=== PATIENT | female | born 1985 | race Hispanic/Latino ===

== ENCOUNTER 2024-01-27 12:37 | Emergency (ER) | payer OTHER, SELFPAY ==
--- OUTSIDE RECORDS SUMMARY | 2024-01-27 12:40 | XMS REPORT | Continuity of Care Document ---
Author Name Unknown Address [address] [facility] [address] [place] [address] [facility] Address [address] [facility] 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 Role Phone Ron Boggs Attending Clinician Unavailab Ron Ballard Admitting Clinician Unavailab moore Allergies, Adverse Reactions, Alerts Allergy Name Allergy Type Status Severity Reaction(s) Onset Date Inactive Date Treating Clinician Comments Source No Known Allergie s DA Active U 01-22 00:00: 00 [facility] Encounters Start Date/Time End Date/Time Encounter Type Admission Type Attending Clinicians Care Facility Care Department Encounter ID Source 2023-01-17 16:39:00 2023-01-17 16:39:00 Outpatient Ron Boggs [facility] [id number] [facility]
[2024-01-27 13:19] LABS: Absolute Eosinophils 0.1 K/uL (0-0.5); Absolute Lymphocytes (CBC) 2.8 K/uL (0.7-4.9); Absolute Monocytes 0.3 K/uL (0.1-1.3); Absolute Neutrophil 2.6 K/uL (1.8-8.0); Basophils % 0.3 % (0-1.3); Eosinophils % 2.2 % (0-4.4); Hematocrit 34.6 % (36.0-45.0); Hemoglobin 10.7 g/dL (12.0-15.0); Lymphocytes % 47.5 % (15.3-44.8); MCH 21.3 pg (27.0-35.0); MCHC 30.9 g/dL (32.0-36.0); MPV 8.7 fL (7.6-11.3); Monocytes % 5.8 % (3.3-12.3); Neutrophils % 44.2 % (41.7-73.7); Platelets 381 thou/uL (152-406); RBC Red Blood Cell Count 5.02 M/uL (3.86-4.86); Red Cell Distribution Width 19.3 % (12.1-15.2)
[2024-01-27 13:35] LABS: ALT/SGPT 20 U/L (13-56); Albumin 3.7 g/dL (3.4-5.0); Alkaline Phosphatase 70 U/L (45-117); Anion Gap 6.6 mEq/L (5.0-15.0); BUN Blood Urea Nitrogen 11 mg/dL (7-18); Bicarbonate 29 mEq/L (21-32); Bilirubin Total 0.3 mg/dL (0.2-1.0); Globulin 3.8 g/dL (2.3-3.5); Glomerular Filtration Rate 112 ml/min (=/>90); Glucose Level 111 mg/dL (74-106); Lipase 40 U/L (13-75); Potassium 3.6 mEq/L (3.5-5.1); Protein, Total 7.5 g/dL (6.4-8.2); Sodium Level 136 mEq/L (136-145)
[2024-01-27 13:41] LABS: AST/SGOT < 10 U/L (15-37)
[2024-01-27 13:49] LABS: Specific Gravity 1.015 (1.005-1.030)
[2024-01-27 13:50] LABS: Specific Gravity 1.015 (1.005-1.030); Sqamous Epithelial <5 /HPF (None Seen); Urine Bacteria None Seen /HPF (<20); Urine Bilirubin NEGATIVE (Negative); Urine Blood Negative (Negative); Urine Clarity Turbid (Clear); Urine Color Colorless (Yellow); Urine Culture Reflex Order NOT NEEDED; Urine Glucose NEGATIVE (Negative); Urine Ketones NEGATIVE (Negative); Urine Microscopic Reflex YN ORDER UMIC; Urine Nitrite NEGATIVE (Negative); Urine Protein NEGATIVE (Negative); Urine RBC <5 /HPF (None Seen); Urine Urobilinogen Normal (Normal); Urine WBC <5 /HPF (<5)
--- NOTE | 2024-01-27 14:31 | RAD REPORT ---
EXAM DESCRIPTION: CT - Abdomen Pelvis W Contrast - 01/27/2024 1:59 pm CLINICAL HISTORY: Abdominal pain COMPARISON: none. TECHNIQUE: Computed axial tomography of the abdomen pelvis was obtained. 100 cc Isovue-300 was admin istered intravenously. Oral contrast was not requested which limits evaluation of bowel and appendix All CT scans are performed using dose optimization technique as appropriate and may include automated exposure control or mA/KV adjustment according to patient size. FINDINGS: The liver, spleen, pancreas, adrenal and kidneys appear unremarkable. There is no evidence of diverticulitis. Normal appendix. 3.2 centimeter right ovarian cystic mass contains a septation. No significant free fluid. Small cysts within cervix. Retroverted uterus IMPRESSION: 3.2 centimeter right ovarian cystic mass contains a septation. No significant free fluid . It likely is benign. Followup ultrasound a couple months is recommended for re-evaluation. Small cysts within cervix likely benign. This also can reassessed on follow-up ultrasound
--- NOTE | 2024-01-27 16:20 | RAD REPORT ---
EXAM DESCRIPTION: US - Transvaginal Study Probe - 01/27/2024 4:07 pm CLINICAL HISTORY: Pelvic pain COMPARISON: CT abdomen January 27, 2024 FINDINGS: The uterus measures 8 x 4 x 5 cm. A fibroid is not seen. The endometrial stripe measures 8 millimeters Several cysts in the cervix probably nabothian cysts The right ovary is enlarged containing blood flow. 3.2 centimeters cyst is present. This is benign. N o further follow up imaging recommended. Left ovary normal size and echotexture prominent follicles The right and left adnexa unremarkable No significant free fluid is seen. IMPRESSION: 3.2 centimeter right ovarian cyst is benign. No significant free fluid
--- NOTE | 2024-01-27 16:44 | ER ---
Nurse's Notes [facility] Name: Tiana Moreira Age: 38 yrs Sex: Female : 1985 Arrival Date: 01/27/2024 Time: 12:37 Bed 18 Private MD: Diagnosis: Other ovarian cysts Presentation: 01/26 12:43 Chief complaint: Patient states: BLQ ABD PAIN SINCE THIS MORNING, DENIES N/V/D. bp Coronavirus screen: At this time, the client does not indicate any symptoms associated with coronavirus-19. Ebola Screen: No symptoms or risks identified at this time. Initial Sepsis Screen: Does the patient meet any 2 criteria? No. Patient's initial sepsis screen is negative. Does the patient have a suspected source of infection? No. Patient's initial sepsis screen is negative. Risk Assessment: Do you want to hurt yourself or someone else? Patient reports no desire to harm self or others. Onset of symptoms was January 27, 2024. 12:43 Method Of Arrival: Ambulatory bp 12:43 Acuity: OLI 3 bp Triage Assessment: 12:44 General: Appears in no apparent distress. Behavior is calm, cooperative, appropriate bp for age. Pain: Complains of pain in abdomen. GI: Reports lower abdominal pain. 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 - Infectious Disease History:: Denies. - Social history:: Smoking status: Patient denies any tobacco usage or history of. - Family history:: not pertinent. Screenin:45 [facility] ED Fall Risk Assessment (Adult) History of falling in the last 3 months, bp including since admission No falls in past 3 months (0 pts). Abuse screen: Denies threats or abuse. Denies injuries from another. Nutritional screening: No deficits noted. Tuberculosis screening: No symptoms or risk factors identified. Assessment: 12:41 General: Appears in no apparent distress. uncomfortable, Behavior is calm, cooperative. rs5 Pain: Complains of pain in abdomen Pain currently is 4 out of 10 on a pain scale. Quality of pain is described as aching, Is continuous. Neuro: Level of Consciousness is awake, alert, obeys commands, Oriented to person, place, time, situation. Cardiovascular: Patient's skin is warm and dry. Rhythm is regular. Respiratory: Airway is patent Respiratory effort is even, unlabored, Respiratory pattern is regular, symmetrical. GI: Abdomen is round Bowel sounds present X 4 quads. Abd is soft and non tender X 4 quads. : No signs and/or symptoms were reported regarding the genitourinary system. EENT: No signs and/or symptoms were reported regarding the EENT system. Derm: Skin is intact, Skin is pink, warm \T\ dry. Musculoskeletal: Range of motion: intact in all extremities. 13:43 Reassessment: Patient and/or family updated on plan of care and expected duration. Pain rs5 level reassessed. Patient is alert, oriented x 3, equal unlabored respirations, skin warm/dry/pink. 14:30 Reassessment: Patient and/or family updated on plan of care and expected duration. Pain rs5 level reassessed. Patient is alert, oriented x 3, equal unlabored respirations, skin warm/dry/pink. 17:20 Reassessment: No changes from previously documented assessment. Patient and/or family ll1 updated on plan of care and expected duration. Pain level reassessed. Patient is alert, oriented x 3, equal unlabored respirations, skin warm/dry/pink. Vital Signs: 12:43 BP 124 / 92; Pulse 74; Resp 16; Temp 98; Pulse Ox 100% ; Weight 68.04 kg; Height 5 ft. bp 1 in. ; 13:43 BP 122 / 80; Pulse 71; Resp 18; Pulse Ox 99% on R/A; rs5 17:24 BP 119 / 81; Pulse 83; Resp 17; Pulse Ox 99% on R/A; Pain 4/10; ll1 12:43 Body Mass Index 28.34 (68.04 kg, 154.94 cm) bp 17:24 Pain Scale: Adult ll1 ED Course: 12:39 Patient arrived in ED. rg4 12:39 Robert Cruz MD is Attending Physician. rt 12:44 Triage completed. bp 12:44 Arm band placed on. bp 12:45 Patient has correct armband on for positive identification. bp 12:58 Inserted saline lock: 20 gauge in right antecubital area, using aseptic technique. rs5 Blood collected. 13:41 Delarosa, Santo, RN is Primary Nurse. rs5 13:43 No provider procedures requiring assistance completed. rs5 13:59 CT Abd/Pelvis - IV Contrast Only In Process Unspecified. EDMS 16:09 Transvaginal Study Probe In Process Unspecified. EDMS 17:23 IV discontinued, intact, bleeding controlled, No redness/swelling at site. Pressure ll1 dressing applied. 17:24 Provided Education on: n/a. ll1 Administered Medications: No medications were administered Medication: 13:43 VIS not applicable for this client. rs5 Outcome: 16:43 Discharge ordered by . rt 17:24 Patient left the ED. rs5 17:24 Discharged to home ambulatory, ll1 17:24 Condition: stable 17:24 Discharge instructions given to patient, Instructed on discharge instructions, follow up and referral plans. Demonstrated understanding of instructions, follow-up care, Signatures: Dispatcher [employer] Jany Woods rg4 Deniz Cuenca RN RN bp Radha House RN RN ll1 Robert Cruz MD MD rt Santo Delarosa, RN RN rs5 Corrections: (The following items were deleted from the chart) 13:43 12:45 General: Appears in no apparent distress. Behavior is appropriate for age, bp rs5
--- NOTE | 2024-01-27 16:44 | EDPHYS ---
Physician Documentation [facility] Name: Tiana Moreira Age: 38 yrs Sex: Female : 1985 Arrival Date: 01/27/2024 Time: 12:37 Bed 18 Private MD: ED Physician Robert Cruz HPI: 01/26 13:11 This 38 yrs old Female presents to ER via Ambulatory with complaints of rt Abdominal Pain. 13:11 Patient presents to the ED with bilateral lower quadrant abdominal pain starting this rt morning. Denies nausea, vomiting, diarrhea, dysuria. LMP was about 5 weeks ago, patient states that she is typically regular. She denies other acute complaints at this time, symptoms are aching nature, moderate severity, nonradiating, no other aggravating or alleviating factors.. 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 - Infectious Disease History:: Denies. - Social history:: Smoking status: Patient denies any tobacco usage or history of. - Family history:: not pertinent. ROS: 13:11 Constitutional: Negative for fever, chills, and weight loss, Cardiovascular: Negative rt for chest pain, palpitations, and edema, Respiratory: Negative for shortness of breath, cough, wheezing, and pleuritic chest pain, MS/Extremity: Negative for injury and deformity, Skin: Negative for injury, rash, and discoloration, Neuro: Negative for headache, weakness, numbness, tingling, and seizure, 13:11 Abdomen/GI: Positive for abdominal pain, Negative for nausea and vomiting, Exam: 13:11 Constitutional: This is a well developed, well nourished patient who is awake, alert, rt and in no acute distress. Head/Face: Normocephalic, atraumatic. Chest/axilla: Normal chest wall appearance and motion. Nontender with no deformity. No lesions are appreciated. Cardiovascular: Regular rate and rhythm with a normal S1 and S2. No gallops, murmurs, or rubs. Normal PMI, no JVD. No pulse deficits. Respiratory: Lungs have equal breath sounds bilaterally, clear to auscultation and percussion. No rales, rhonchi or wheezes noted. No increased work of breathing, no retractions or nasal flaring. Skin: Warm, dry with normal turgor. Normal color with no rashes, no lesions, and no evidence of cellulitis. MS/ Extremity: Pulses equal, no cyanosis. Neurovascular intact. Full, normal range of motion. Neuro: Awake and alert, GCS 15, oriented to person, place, time, and situation. Cranial nerves II-XII grossly intact. Motor strength 5/5 in all extremities. Sensory grossly intact. Cerebellar exam normal. Normal gait. 13:11 Abdomen/GI: Tenderness to the lower quadrants, suprapubic region without rebound, guarding, distention, Vital Signs: 12:43 BP 124 / 92; Pulse 74; Resp 16; Temp 98; Pulse Ox 100% ; Weight 68.04 kg; Height 5 ft. bp 1 in. ; 13:43 BP 122 / 80; Pulse 71; Resp 18; Pulse Ox 99% on R/A; rs5 17:24 BP 119 / 81; Pulse 83; Resp 17; Pulse Ox 99% on R/A; Pain 4/10; ll1 12:43 Body Mass Index 28.34 (68.04 kg, 154.94 cm) bp 17:24 Pain Scale: Adult ll1 MDM: 12:48 Patient medically screened. rt 17:11 Differential Diagnosis Appendicitis, ovarian cyst, ovarian torsion, UTI. Data reviewed: rt vital signs, nurses notes, lab test result(s), radiologic studies. I considered the following discharge prescriptions or medication management in the emergency department Patient declined pain medications. Independent interpretation of the following test(s) in the Emergency Department CT Scan: My interpretation is No bowel obstruction seen on interpretation of CT scan images. Counseling: I had a detailed discussion with the patient and/or guardian regarding the historical points, exam findings, and any diagnostic results supporting the discharge/admit diagnosis, lab results, radiology results, the need for outpatient follow up, to return to the emergency department if symptoms worsen or persist or if there are any questions or concerns that arise at home. ED course: Inform patient of radiographic findings, instructed to follow-up with superintendent transmission for further surveillance of ovarian cyst.. 01/26 12:48 Order name: CBC with Diff rt 01/26 12:48 Order name: CMP; Complete Time: 14:20 rt 01/26 12:48 Order name: Lipase; Complete Time: 14:20 rt 01/26 12:48 Order name: Test, Urine; Complete Time: 14:20 rt 01/26 12:48 Order name: Urinalysis w/ reflexes; Complete Time: 14:20 rt 01/26 13:31 Order name: CBC Smear Scan EDMS 01/26 12:48 Order name: CT Abd/Pelvis - IV Contrast Only; Complete Time: 14:33 rt 01/26 15:35 Order name: Transvaginal Study Probe; Complete Time: 16:33 EDMS 01/26 12:48 Order name: IV Saline Lock; Complete Time: 13:44 rt 01/26 12:48 Order name: Labs collected and sent; Complete Time: 13:44 rt Administered Medications: No medications were administered Disposition Summary: 01/27/24 16:43 Discharge Ordered Notes: Location: Home rt Problem: new rt Symptoms: are unchanged rt Condition: Stable rt Diagnosis - Other ovarian cysts rt Followup: rt - With: Private Physician - When: 5 - 6 days - Reason: Discharge Instructions: - Discharge Summary Sheet rt - Ovarian Cyst rt Forms: - Medication Reconciliation Form rt - Antibiotic Education rt - Prescription Opioid Use rt - Patient Portal Instructions rt - Leadership Thank You Letter rt - Work release form rs5 Signatures: Dispatcher [employer] Deniz Waddell, RN RN Robert Ruiz MD MD rt Corrections: (The following items were deleted from the chart) 15:35 15:29 Pelvis Complete+US.RAD.BRZ ordered. EDTN EDTN
[2024-01-27 17:36] LABS: Blood Morphology Comment NOT SEEN (NOT SEEN); Platelet Estimate ADEQ; White Blood Cell Scan OK (OK)
[2024-01-27 17:43] VITALS: BP 122/80; TEMP 98; O2SAT 99
== END 2024-01-27 17:24 | disposition home or self-care (01) ==
LOC: ER 12:37
DX: N83.292 Other ovarian cyst, left side (principal); N83.291 Other ovarian cyst, right side
CPT/HCPCS: 36415; 74177; 76830; 80053; 81001; 81025; 83690; 85025; 99284; Q9967